=== PATIENT | male | born 1985 | race Two or more races ===

== ENCOUNTER 2021-06-10 17:47 | Emergency (ER) | payer OTHER ==
[~2021-06-10] VITALS: Ht 165.1 cm; Wt 70.3 kg
--- NOTE | 2021-06-10 17:54 | NUR ---
Brought by EMS to the emergency department, JEAN called 911-the patient is walking in traffic On assessment, the patient is alert and awake x3; admits to being hearing voices-but he denies danger to self or suicidal ideation or homicidal thoughts.
--- NOTE | 2021-06-10 17:54 | NUR ---
The patient also admits that [place] [facility] [place] at [facility]. The patient states that he was diagnosed with depression; prescribed with antidepressant but he is currently off of medication-states that he does not need it.
--- NOTE | 2021-06-10 18:19 | NUR ---
patient refused covid swab md notified and aware.
[2021-06-10 18:47] LABS: ALANINE AMINOTRANSFERASE 24 U/L (12-78); ALCOHOL, BLOOD < 3 mg/dL (0-0); ALKALINE PHOSPHATASE 93 U/L (46-116); ASPARTATE AMINOTRANSFERASE 19 U/L (15-37); BILIRUBIN,DIRECT 0.2 mg/dL (0.0-0.2); BILIRUBIN,TOTAL 0.7 mg/dL (0.2-1.0); CALCIUM, SERUM 8.8 mg/dL (8.5-10.1); CARBON DIOXIDE 27 mmol/L (21-32); CHLORIDE 104 mmol/L (98-107); CREATININE 1.3 mg/dL (0.6-1.3); GLUCOSE 87 mg/dL (74-106); POTASSIUM 3.6 mmol/L (3.5-5.1); SODIUM SERUM 140 mmol/L (136-145); TOTAL PROTEIN, SERUM 8.2 g/dL (6.4-8.2); UREA NITROGEN, BLOOD 12 mg/dL (7-18)
[2021-06-10 18:54] LABS: BILIRUBIN,URINE SMALL (NEGATIVE); COLOR,URINE YELLOW (YELLOW); LEUKOCYTE ESTERASE ,URINE NEGATIVE (NEGATIVE); NITRITE, URINE NEGATIVE (NEGATIVE); PH,URINE 5.5 (5.0-8.0); PROTEIN,URINE TRACE mg/dl (NEGATIVE); UGLUCOSE NEGATIVE (NEGATIVE)
[2021-06-10 18:55] LABS: ACETAMINOPHEN < 10 ug/ml (10-30)
[2021-06-10 19:08] LABS: BACTERIA,URINE 1+ /HPF (None Seen); WBC,URINE 0-2 /HPF (0-3)
[2021-06-10 19:09] LABS: MUCUS,URINE Moderate /LPF (None Seen)
--- NOTE | 2021-06-10 19:19 | NUR ---
covid swab collected and sent to lab.
--- NOTE | 2021-06-10 19:24 | NUR ---
report given to samra SAHNI for ashlyn.
[2021-06-10 19:48] LABS: BASOPHILS # (AUTO) 0.1 K/uL (0.0-0.2); BASOPHILS % (AUTO) 0.8 % (0.0-2.0); EOSINOPHILS % (AUTO) 12.6 % (0.0-6.0); HEMATOCRIT 44 % (39-51); HEMOGLOBIN 15.2 g/dL (13.5-17.5); LYMPHOCYTES # (AUTO) 2.6 K/uL (0.8-4.8); MEAN CORPUSCULAR HGB CONC 34 g/dl (31.0-36.0); MEAN CORPUSCULAR VOLUME 100 fL (80-96); MONOCYTES # (AUTO) 0.5 K/uL (0.1-1.30); MONOCYTES % (AUTO) 6.5 % (2.0-12.0); NEUTROPHILS # (AUTO) 3.5 K/uL (1.8-8.9); NEUTROPHILS % (AUTO) 46.1 % (43.0-81.0); PLATELET COUNT (AUTO) 296 K/uL (150-450); RED BLOOD CELL COUNT(AUTO) 4.45 MIL/uL (4.5-6.0); WHITE BLOOD COUNT (AUTO) 7.6 K/uL (4.3-11.0)
[2021-06-10] MEDS ORDERED: OLANZAPINE 5 MG TABLET PO ONE (20:00)
--- NOTE | 2021-06-10 20:00 | NUR ---
Patient is resting comfortably in bed with eyes closed. Easily aroused. VSS
[2021-06-10] MEDS ORDERED: OLANZAPINE 5 MG TABLET ONE (20:09)
--- NOTE | 2021-06-10 21:00 | NUR ---
pt watching tv quietly, attached to monitor. vss
--- NOTE | 2021-06-10 22:44 | NUR ---
Patient is resting comfortably in bed with eyes closed. Easily aroused. VSS
--- NOTE | 2021-06-11 00:24 | NUR ---
PT AMBULATED TO RESTROOM, NEEDS MET
--- NOTE | 2021-06-11 00:40 | NUR ---
Patient discharged to home in stable condition. Written and verbal after care instructions given. Patient verbalizes understanding of instruction. Pt ambulatory with a steady gait Patient given written and verbal discharge instructions. Patient verbalizes understanding of instructions. Patient is ambulatory with steady gait. Refuses offer of half-way placement. Patient given list of available shelters in surrounding area.
[2021-06-11 00:43] VITALS: BP 119/68
== END 2021-06-11 00:43 | disposition home or self-care (01) ==
LOC: ER 17:50
DX: F23 Brief psychotic disorder (principal); F19.10 Other psychoactive substance abuse, uncomplicated; Z82.49 Family history of ischemic heart disease and other diseases of the circulatory system; F17.200 Nicotine dependence, unspecified, uncomplicated; Z20.822 Contact with and (suspected) exposure to COVID-19
CPT/HCPCS: 36415; 80048; 80076; 80143; 80307; 80320; 81001; 85025; 87426; 99285; C9803; G0480